=== PATIENT | female | born 1985 | race African-American/Black ===

== ENCOUNTER → 2016-04-28 | Outpatient (REF) | payer OTHER ==
[2016-04-28 12:34] LABS: MEAN CORPUSCULAR HEMOGLOBIN 29.4 pg (27.0-33.0); MEAN CORPUSCULAR VOLUME 89.1 fl (80.0-96.0); RED CELL DISTRIBUTION WIDTH 13.3 % (11.5-14.5); WHITE BLOOD COUNT 5.6 K/mm3 (4.0-10.0)
[2016-04-28 12:54] LABS: FREE T4 2.16 NG/DL (0.76-1.46)
== END ==
LOC: M LABDRAW1 11:47
PROVIDERS: ATTEND Physician Assistant Medical
DX: E89.0 Postprocedural hypothyroidism (principal); N92.0 Excessive and frequent menstruation with regular cycle; R53.83 Other fatigue; Z13.1 Encounter for screening for diabetes mellitus

== ENCOUNTER → 2016-07-07 | Day surgery (SDC) | payer OTHER ==
[~2016-07-07] VITALS: Ht 167.6 cm; Wt 145.1 kg
[~2016-07-07] MED LIST: CEPACOL LOZENGE PO PRN; GLYCOPYRROLATE INJ 0.2 MG/ML 2 ML VIAL As Ordered ONE; KETOROLAC 60 MG/2 ML VIAL (J1885) As Ordered ONE; LEVO175T2 PO; LIDOCAINE 2% INJ 100 MG/5 ML SDV (FOR ANES.) As Ordered ONE; LR 1,000 ML IV ONE; LR 1,000 ML IV SCH; METOCLOPRAMIDE INJ 10MG/2ML VIAL (J2765) IV PRN; MIDAZOLAM INJ 2 MG/2 ML VIAL (J2250) As Ordered ONE; MORPHINE 2 MG/ML 1ML SYRINGE IV PRN; NEOSTIGMINE 1MG/ML 5 ML SYRINGE (J2710) As Ordered ONE; ONDANSETRON 4MG/2ML VIAL (J2405) As Ordered ONE; ONDANSETRON 4MG/2ML VIAL (J2405) IV PRN; PRENTAB53 PO; PROPOFOL 200 MG/20 ML VIAL As Ordered ONE; ROCURONIUM BROMIDE 50 MG/5 ML VIAL As Ordered ONE; SUCCINYLCHOLINE 100 MG/5 ML SYRINGE (J0330) As Ordered ONE; [UNRECOGNIZED DRUG - OTHER] PO; dexameTHASONE 4 MG/ML 1ML VIAL (J1100) As Ordered ONE; fentaNYL 100 MCG/2 ML INJECTION (J3010) As Ordered ONE
[2016-07-07 08:42] LABS: CONTROL LINE HCG INT CTR LINE PRESENT
[2016-07-07] MEDS: fentaNYL 100 MCG/2 ML INJECTION (J3010) IV PRN ×4 (11:26→11:43)
[2016-07-07] MEDS: PERCOCET 5MG/325MG TAB PO PRN ×2 (12:14→14:18)
[2016-07-07 14:15] VITALS: BP 120/58
--- NOTE | 2016-07-08 06:58 | RO ---
DATE OF PROCEDURE: 07/07/2016 PREPROCEDURE DIAGNOSES: Abnormal uterine bleeding related to benign endometrial hyperplasia. POSTPROCEDURE DIAGNOSES: Abnormal uterine bleeding related to benign endometrial hyperplasia. SURGEON: Flora Elise MD APARTMENT HOUSE MANAGER: Mando Barron MD CLINICAL SERVICE: Gynecology. MATERIAL FORWARDED TO THE LAB FOR EXAMINATION: Endometrial curettings. INDICATION FOR OPERATION: Ebony is a 31-year-old female who presented with abnormal uterine bleeding and on workup had an endometrial biopsy which showed benign endometrial hyperplasia. She desired future fertility and desired to treat her hyperplasia with Progesterone treatment. She had had a Mirena in the past and was happy with it. Also, notably, she was recently referred to [facility] for bariatric surgery consult and it appears she will be proceeding with the bariatric surgery for her morbid obesity. The Mirena IUD will be a sure form of contraception while she has the surgery and loses weight. She understands she needs to be one year at a stable weight after the surgery before trying to conceive. DESCRIPTION OF FINDINGS: Uterus sounded to 10 cm. Hysteroscopic findings revealed no intracavitary lesions. INFECTION CLASSIFICATION: 2. ESTIMATED BLOOD LOSS: 5 mL. IV FLUIDS: 1200 mL lactated ringers. URINE OUTPUT: None recorded. OPERATION PERFORMED: Diagnostic hysteroscopy Dilation and curettage Mirena IUD placement DESCRIPTION OF OPERATION: After obtaining informed consent, Ebony was taken to the operating room where she underwent general endotracheal anesthesia. She was placed in low lithotomy position and the perineum and vagina were prepped and draped in sterile fashion. Speculum was inserted into the vagina and the anterior segment of the cervix was grasped with a single tooth tenaculum. Uterus sounded to 10 cm. Cervix was sequentially dilated with Hanks dilators. Hysteroscopic camera was introduced to the fundus of the uterus where there were no intracavitary lesions noted. Both of the uterine ostia were identified. Endometrial cavity in general was normal in appearance. Curette was used to scrape the endometrial lining. Good cry was noted at 360 degrees. At that point, we placed the Mirena device in typical fashion. Since the uterus sounded to 10 cm, the Mirena IUD was sized to 10 cm and placed easily through the cervix up to the uterine fundus and released. The Mirena strings were cut to approximately 4 cm and tucked up near the cervix. Tenaculum was removed. Hemostasis noted. [place] speculum was removed and she was awakened from general endotracheal anesthesia in good condition, transferred to the recovery room. All counts were correct times two. MTDD
== END ==
LOC: M SDC 08:01
PROVIDERS: ATTEND Obstetrics & Gynecology
DX: N93.8 Other specified abnormal uterine and vaginal bleeding (principal); N85.01 Benign endometrial hyperplasia; Z30.430 Encounter for insertion of intrauterine contraceptive device; E03.9 Hypothyroidism, unspecified; Z79.899 Other long term (current) drug therapy; Z92.3 Personal history of irradiation
CPT/HCPCS: 36415; 58300; 58558; 84703; 85014; 85018; 86850; 86900; 86901; 88305; J0330; J1100; J1885; J2250; J2405; J2710; J3010; J7298

== ENCOUNTER 2016-10-01 11:45 | Emergency (ER) | payer OTHER ==
[~2016-10-01] VITALS: Ht 167.6 cm; Wt 145.4 kg
[~2016-10-01 11:45] MED LIST changes: -CEPACOL LOZENGE PO PRN; -GLYCOPYRROLATE INJ 0.2 MG/ML 2 ML VIAL As Ordered ONE; -KETOROLAC 60 MG/2 ML VIAL (J1885) As Ordered ONE; -LIDOCAINE 2% INJ 100 MG/5 ML SDV (FOR ANES.) As Ordered ONE; -LR 1,000 ML IV ONE; -LR 1,000 ML IV SCH; -METOCLOPRAMIDE INJ 10MG/2ML VIAL (J2765) IV PRN; -MIDAZOLAM INJ 2 MG/2 ML VIAL (J2250) As Ordered ONE; -MORPHINE 2 MG/ML 1ML SYRINGE IV PRN; -NEOSTIGMINE 1MG/ML 5 ML SYRINGE (J2710) As Ordered ONE; -ONDANSETRON 4MG/2ML VIAL (J2405) As Ordered ONE; -ONDANSETRON 4MG/2ML VIAL (J2405) IV PRN; -PROPOFOL 200 MG/20 ML VIAL As Ordered ONE; -ROCURONIUM BROMIDE 50 MG/5 ML VIAL As Ordered ONE; -SUCCINYLCHOLINE 100 MG/5 ML SYRINGE (J0330) As Ordered ONE; -dexameTHASONE 4 MG/ML 1ML VIAL (J1100) As Ordered ONE; -fentaNYL 100 MCG/2 ML INJECTION (J3010) As Ordered ONE
[2016-10-01] MEDS ORDERED: KETOROLAC 30 MG/ML VIAL (J1885) IV ONE (12:30)
[2016-10-01 12:52] LABS: BASO % 0.4 % (0.0-1.0); EOS # 0.1 K/mm3 (0.0-0.50); EOS % 1.2 % (0.0-3.0); LARGE UNSTAINED CELL # 0.2 K/mm3 (0.0-0.4); LARGE UNSTAINED CELL % 2.8 % (0.0-4.0); LYMPH # 2.6 K/mm3 (1.5-4.5); LYMPH % 43.5 % (24.0-44.0); MEAN CORPUSCULAR HEMOGLOBIN 29.4 pg (27.0-33.0); MEAN CORPUSCULAR HGB CONC 34.8 g/dl (32.0-36.5); MEAN CORPUSCULAR VOLUME 84.5 fl (80.0-96.0); MONO # 0.4 K/mm3 (0.0-0.8); MONO % 6.6 % (0.0-5.0); NEUTROPHILS # 2.5 K/mm3 (1.8-7.7); NEUTROPHILS % 45.4 % (36.0-66.0); PLATELET COUNT, AUTOMATED 222 k/mm3 (150-450); RED CELL DISTRIBUTION WIDTH 14.2 % (11.5-14.5); WHITE BLOOD COUNT 5.5 K/mm3 (4.0-10.0)
[2016-10-01 13:01] LABS: ALBUMIN 3.4 GM/DL (3.2-5.2); ALBUMIN/GLOBULIN RATIO 0.79 (1.00-1.93); ALKALINE PHOSPHATASE 60 U/L (45-117); ALT/SGPT 22 U/L (12-78); ANION GAP 9 MEQ/L (8-16); AST/SGOT 16 U/L (15-37); BILIRUBIN,DIRECT < 0.1 MG/DL (0.0-0.2); BILIRUBIN,TOTAL 0.2 MG/DL (0.2-1.0); BLOOD UREA NITROGEN 9 MG/DL (7-18); CALCIUM LEVEL 8.5 MG/DL (8.5-10.1); CARBON DIOXIDE LEVEL 24 MEQ/L (21-32); CHLORIDE LEVEL 109 MEQ/L (98-107); CREATININE FOR GFR 0.74 MG/DL (0.55-1.02); GLOMERULAR FILTRATION RATE > 60.0 (>60); GLUCOSE, FASTING 105 MG/DL (70-105); POTASSIUM SERUM 3.9 MEQ/L (3.5-5.1); SODIUM LEVEL 142 MEQ/L (136-145); TOTAL PROTEIN 7.7 GM/DL (6.4-8.2)
--- NOTE | 2016-10-01 13:18 | REP ---
CHEST X-RAY: TWO VIEWS HISTORY: Chest pain. No comparison views. FINDINGS: EKG monitoring electrodes overlie the chest. The lungs are symmetrically aerated and clear. Heart is not enlarged. Pleural angles are sharp. Pulmonary vasculature is not increased. No significant bony abnormality is seen. IMPRESSION: No acute disease. Signed by Ricardo Alva MD 10/01/2016 04:41 P
[2016-10-01 13:27] VITALS: BP 144/65
[2016-10-01 13:28] LABS: ERYTHROCYTE SEDIMENTATION RATE 39 mm/hr (0-20)
[2016-10-01] MEDS ORDERED: ISOVUE-370 76% 100ML VIAL (Q9967) As Ordered ONE (13:39)
--- NOTE | 2016-10-01 14:56 | REP ---
CT of the chest, CT pulmonary angio protocol: Studies performed with intravenous contrast. The pulmonary arteries are poorly opacified, the majority of the contrast is in the vena cava at the time of scanning. There are no large emboli in the pulmonary trunk or in the central pulmonary arteries. No emboli are identified in the pulmonary artery lobe branches. The segment branches are poorly opacified. There are no infiltrates, effusions, masses or nodules. Cardiac size is upper normal. There is no pericardial effusion. The thoracic aorta is unremarkable. The visualized upper abdominal contents are unremarkable. Impression: The pulmonary arteries are poorly opacified, the majority of the contrast is in the vena cava and subclavian vein at the time of scanning. There are no large central pulmonary emboli. There are no infiltrates or effusions. Cardiac size is borderline enlarged. Cardiac size. Otherwise, negative CT study of the chest. Signed by Andrea García MD 10/01/2016 02:47 P
[2016-10-01] MEDS ORDERED: NAPR500T PO (15:14)
--- NOTE | 2016-10-02 08:12 | ECGEPIP ---
Stationary ECG Study [facility] - ED Test Date: 2016-10-01 Pat Name: KLEVER CABANDepartment: Room: - Gender: F Application Security Architect: rn : 1985 Requested By: DELIA Mcarthur Order Number: [id number] Reading MD: Shanae Andrews Measurements Intervals [place] Rate: 73 P: 6 NV: 204 QRS: -26 QRSD: 152 T: -2 QT: 416 QTc: 459 Interpretive Statements SINUS RHYTHM BORDERLINE LEFT AXIS DEVIATION RIGHT BUNDLE BRANCH BLOCK MODERATE VOLTAGE CRITERIA FOR LVH, CONSIDER NORMAL VARIANT NO PRIOR FOR COMPARISON Electronically Signed On 10-02-2016 8:11:37 EDT by Shanae Andrews
--- NOTE | 2016-10-02 08:16 | ECGEPIP ---
Stationary ECG Study [facility] - ED Test Date: 2016-10-01 Pat Name: KLEVER PÉREZERDepartment: Room: - Gender: F Zone Manager: rn : 1985 Requested By: ESTEFANY BACON Order Number: [id number] Reading MD: Shanae Andrews Measurements Intervals [place] Rate: 79 P: -23 NE: 204 QRS: -26 QRSD: 154 T: 3 QT: 421 QTc: 483 Interpretive Statements SINUS RHYTHM BORDERLINE LEFT AXIS DEVIATION RIGHT BUNDLE BRANCH BLOCK MODERATE VOLTAGE CRITERIA FOR LVH, CONSIDER NORMAL VARIANT SIMILAR 10/01/16 Electronically Signed On 10-02-2016 8:16:27 EDT by Shanae Andrews
== END 2016-10-01 15:34 | disposition home or self-care (01) ==
LOC: M ED 11:45
DX: R07.89 Other chest pain (principal); F41.9 Anxiety disorder, unspecified; E03.9 Hypothyroidism, unspecified; Z87.891 Personal history of nicotine dependence; Z80.8 Family history of malignant neoplasm of other organs or systems; Z83.3 Family history of diabetes mellitus; Z83.49 Family history of other endocrine, nutritional and metabolic diseases; Z82.0 Family history of epilepsy and other diseases of the nervous system; Z79.899 Other long term (current) drug therapy; Z88.1 Allergy status to other antibiotic agents
CPT/HCPCS: 36415; 71020; 71275; 80048; 80076; 82550; 82553; 83690; 85025; 85379; 85652; 86140; 93005; 93041; 94760; 96374; 99285; J1885; Q9967

== ENCOUNTER 2016-10-06 09:02 | Outpatient (RCR) | payer OTHER ==
[~2016-10-06 09:02] MED LIST changes: +NAPR500T PO
== END 2016-10-14 ==
LOC: M OT 09:02
PROVIDERS: ATTEND Physician Assistant Medical
DX: Z51.89 Encounter for other specified aftercare (principal); M79.644 Pain in right finger(s)

== ENCOUNTER → 2016-10-16 | Outpatient (CLI) | payer OTHER ==
--- NOTE | 2016-10-29 14:12 | SLEEPCENT ---
DATE OF PROCEDURE: 10/16/2016 REFERRING PROVIDER: Dr. Raheel Yu INTERPRETATION: Nocturnal recording polysomnography was performed for the determination of pressure therapy in this patient with mild obstructive sleep apnea with an apnea/hypopnea index (AHI) of 5.1 and an respiratory disturbance index (RDI) of 6.5 with associated symptoms of excessive daytime sleepiness, mood disorders, insomnia, gasping respirations, morning headache, nonrestorative sleep. It should be noted that the diagnostic portion was done completely in the lateral position. A total of 7 hours and 38 minutes of data was reviewed for the entire titration with 373.5 minutes of sleep identified. Sleep latency was 21.5 minutes. Rapid eye movement( REM) latency was 107 minutes. No slow-wave sleep was identified. Sleep efficiency was 83.9%. Electrocardiogram (EKG) showed normal sinus rhythm with an average heart rate of 75 beats per minute. No epileptiform discharge observed. The patient had been fit with a ResMed Mirage FX nasal mask of medium wide and 4 cm of water pressure was applied to the circuit, and the lights were dimmed. Continuous positive airway pressure (CPAP) started at 4 cm of water pressure did not need to be adjusted as it appeared optimal. On this pressure, apnea/hypopnea index (AHI) was 0.2 and respiratory arousal index (LEIVA) was 0.2. Oxygen saturation [place] was 89%. Periodic limb movement index was 5. She was entirely in the lateral position during the titration just as she was for the diagnostic study. IMPRESSION: 1. Obstructive sleep apnea, mild, reasonably palliated on continuous positive airway pressure (CPAP) at 4 cm of water pressure. 2. Periodic limb movements, mild. RECOMMENDATIONS: Recommend continuation of CPAP therapy at the above pressure via a medium wide ResMed Mirage FX nasal mask or mask of her preference. full-face mask or mask of her preference. Clinical correlation will be necessary to ensure eradication of symptoms. BOB
== END ==
LOC: M SLEEP 20:00
PROVIDERS: ATTEND Internal Medicine Pulmonary Disease
DX: G47.33 Obstructive sleep apnea (adult) (pediatric) (principal)

== ENCOUNTER 2016-10-20 08:48 | Outpatient (RCR) | payer OTHER | END 2016-11-13 | LOC: M OT 08:48 | PROVIDERS: ATTEND Physician Assistant Medical | DX: Z51.89 Encounter for other specified aftercare (principal); M79.644 Pain in right finger(s) ==

== ENCOUNTER 2017-01-10 02:57 | Emergency (ER) | payer OTHER ==
[~2017-01-10] VITALS: Ht 167.6 cm; Wt 124.1 kg
[2017-01-10] MEDS ORDERED: STOO100C PO (03:03)
[2017-01-10] MEDS ORDERED: ACETAMINOPHEN TAB 650MG DOSE (2X325MG) PO ONE (03:15)
[2017-01-10] MEDS ORDERED: DOXY100C37 PO (08:24)
[2017-01-10 08:45] VITALS: BP 137/82
== END 2017-01-10 08:47 | disposition home or self-care (01) ==
LOC: M ED 02:57
DX: J02.0 Streptococcal pharyngitis (principal); E03.9 Hypothyroidism, unspecified; Z79.899 Other long term (current) drug therapy; Z88.0 Allergy status to penicillin; Z88.1 Allergy status to other antibiotic agents; Z98.0 Intestinal bypass and anastomosis status

== ENCOUNTER → 2017-11-07 | Outpatient (REF) | payer OTHER ==
[2017-11-08 13:48] LABS: CHLAMYDIA DNA AMPLIFICATION NEGATIVE (NEGATIVE); GC DNA AMPLIFICATION NEGATIVE (NEGATIVE)
== END ==
LOC: M SFHCLERA 19:40
DX: Z11.3 Encounter for screening for infections with a predominantly sexual mode of transmission (principal)

== ENCOUNTER → 2017-11-07 | Outpatient (CLI) | payer OTHER | LOC: M LRY 19:46 | DX: S89.92XA Unspecified injury of left lower leg, initial encounter (principal); X58.XXXA Exposure to other specified factors, initial encounter; Y92.9 Unspecified place or not applicable | CPT/HCPCS: 73564; 87591 ==

== ENCOUNTER → 2017-11-19 | Outpatient (CLI) | payer OTHER | LOC: M SLEEP 20:00 | DX: R06.83 Snoring (principal); G47.33 Obstructive sleep apnea (adult) (pediatric); Z98.84 Bariatric surgery status | CPT/HCPCS: 95810 ==